=== PATIENT | female | born 1965 | race Caucasian/White ===

== ENCOUNTER 2023-02-21 08:21 | Outpatient (OUT) | payer BC, SELFPAY ==
--- NOTE | 2023-02-21 08:36 | XR_ITS ---
The [address] [address] Patient Name: MELLY ORR MRN: [id number] date: 1965 Sex: F Assigned Patient Location: LAB Current Patient Location: LAB Accession/Order Number: [id number] Exam Date: 02/21/2023 08:45 Report Date: 02/21/2023 09:27 At the request of: SANGEETA BOOGIE Procedure: XR cervical spine 2-3V EXAMINATION: XR cervical spine 2-3V HISTORY: Cervical Pain M54.2 COMPARISON: No relevant comparison available. FINDINGS: BONES: Normal alignment with no acute fracture or spondylolisthesis. Moderate to severe degenerative spondylosis. [id number] facet osteoarthropathy DISC SPACES: Moderate to severe multilevel disc space narrowing most significant at C4-C7 PARASPINOUS: Negative. No paraspinous abnormality is seen. OTHER: Negative. XR/XR cervical spine 2-3V IMPRESSION: Moderate to severe degenerative changes Electronically authenticated by: ARCHANA BIANCHI Date: 02/21/2023 09:27
[2023-02-21 09:20] LABS: Basophils Percent Auto 0.5 % (0.2-2.0); Eosinophils Absolute Auto 0.3 10^3/uL (0.0-0.7); Eosinophils Percent Auto 3.2 % (0.9-7.0); Hematocrit 47.3 % (36.0-48.0); Immature Granulocytes Abs Auto 0.02 10^3/uL (0.00-0.03); Immature Granulocytes Pct Auto 0.3 % (0.0-0.5); Lymphocytes Absolute Auto 1.9 10^3/uL (1.2-3.8); Lymphocytes Percent Auto 24.9 % (20.5-60.0); Mean Corpuscular HGB Conc 31.7 g/dL (29.9-35.2); Mean Corpuscular Hemoglobin 29.8 pg (26.7-34.0); Mean Corpuscular Volume 93.8 fL (81.0-99.0); Mean Platelet Volume 9.8 fL (9.5-13.5); Monocytes Absolute Auto 0.6 10^3/uL (0.3-0.8); Monocytes Percent Auto 7.1 % (1.7-12.0); Neutrophils Absolute Auto 4.9 10^3/uL (1.4-6.5); Platelet Count 355 10^3/uL (150-450); Red Blood Count 5.04 10^6/uL (4.20-5.40); Red Cell Distribution Width 12.9 % (11.0-15.0); White Blood Count 7.7 10^3/uL (4.0-11.0)
[2023-02-21 09:21] LABS: Bilirubin Urine NEGATIVE (NEGATIVE); Blood Urine NEGATIVE (NEGATIVE); Clarity Urine CLEAR (CLEAR); Color Urine DK. YELLOW (YELLOW); Glucose Urine UA 100 mg/dL (NEGATIVE); Ketones Urine 15 mg/dL (NEGATIVE); Leukocyte Esterase Urine NEGATIVE (NEGATIVE); Nitrite Urine NEGATIVE (NEGATIVE); Protein Urine >=300 mg/dL (NEG/TRACE); Specific Gravity Urine >=1.030 (1.005-1.025); pH Urine 5.5 (5.0-9.0)
[2023-02-21 09:32] LABS: WBC Urine NONE SEEN #/HPF (NONE SEEN)
[2023-02-21 09:33] LABS: Bacteria Urine SMALL #/HPF (NONE SEEN); Cast Seen? NONE SEEN #/LPF (NONE SEEN); Crystals Seen? None Seen #/HPF (None Seen); Mucus Urine NONE SEEN (NONE SEEN); RBC Urine 0-2 #/HPF (0-2); Squamous Epithelial Cell Urine MODERATE #/LPF (NONE/RARE)
[2023-02-21 12:08] LABS: Free T4 0.93 ng/dL (0.76-1.46)
[2023-02-21 12:59] LABS: Estimated Average Glucose 255 mg/dL; Glycohemoglobin A1C 10.5 % (4.5-6.2)
[2023-02-21 14:55] LABS: Alanine Aminotransferase 14 U/L (14-59); Albumin Globulin Ratio 1.1; Albumin Level 3.6 g/dL (3.4-5.0); Alkaline Phosphatase 105 U/L (46-116); Anion Gap 12.3; Aspartate Amino Transferase 8 U/L (15-37); BUN Creatinine Ratio 11.8; Bilirubin Total 0.3 mg/dL (0.2-1.0); Carbon Dioxide 29.7 mmol/L (21.0-32.0); Chloride 102 mmol/L (98-107); Estimated GFR (African America >60 (>=60); Estimated GFR (Non-African Ame >60 (>=60); Globulin 3.4 g/dL; Glucose 240 mg/dL (74-106); Sodium 140 mmol/L (136-145)
[2023-02-21 14:56] LABS: Chol HDL Ratio 5.2; Cholesterol 280 mg/dL (<=200); HDL Cholesterol 54 mg/dL (40-60); Thyroid Stimulating Hormone 0.978 uIU/mL (0.358-3.740); Triglycerides 177 mg/dL (<=150); VLDL CHOLESTEROL 35.4 mg/dL
== END 2023-02-21 08:22 | disposition home or self-care (01) ==
LOC: LAB 08:25
PROVIDERS: PCP Nurse Practitioner; Visit Provider Nurse Practitioner
DX: Z78.9 Other specified health status (principal); M54.2 Cervicalgia; M47.812 Spondylosis without myelopathy or radiculopathy, cervical region
CPT/HCPCS: 36415; 72040; 80053; 80061; 81001; 83036; 84439; 84443; 85025

== ENCOUNTER 2023-06-15 15:07 | Outpatient (OUT) | payer BC, SELFPAY ==
--- NOTE | 2023-06-15 15:25 | MM_ITS ---
Patient Name: MELLY ORR MR#: [id number] : 1965 Exam Date: 06/15/2023 Ordering Doctor: TYLER Marte CNP RADIOLOGY REPORT PROCEDURE: MM TOMOSYNTHESIS SCREENING BI COMPARISON: None. INDICATIONS: screening Calculator Name NCI Breast Cancer Risk Assessment Tool 5 Year Breast Cancer Risk 1.20% Lifetime Breast Cancer Risk 7.90% Personal Breast Cancer No Personal Ovarian Cancer No Treatments None Family Cancers Father with lung cancer at age 69. LOCATION: The [facility] BREAST COMPOSITION: Scattered areas fibroglandular density. FINDINGS: DIAGNOSTIC CATEGORY 1--NEGATIVE. RIGHT BREAST: No significant suspicious finding. LEFT BREAST: No significant suspicious finding. RECOMMENDATIONS: ROUTINE MAMMOGRAM AND CLINICAL EVALUATION IN 12 MONTHS. PLEASE NOTE: A NORMAL MAMMOGRAM DOES NOT EXCLUDE THE POSSIBILITY OF BREAST CANCER. A CLINICALLY SUSPICIOUS PALPABLE LUMP SHOULD BE BIOPSIED. Dictated by: Jarvis Rubio MD on 06/16/2023 at 08:10 Approved by: Jarvis Rubio MD on 06/16/2023 at 08:12
[2023-06-15 15:42] LABS: Estimated Average Glucose 206 mg/dL; Glycohemoglobin A1C 8.8 % (4.5-6.2)
[2023-06-15 16:10] LABS: Alanine Aminotransferase 16 U/L (14-59); Aspartate Amino Transferase 12 U/L (15-37); Chol HDL Ratio 2.9; Cholesterol 191 mg/dL (<=200); HDL Cholesterol 66 mg/dL (40-60); Triglycerides 193 mg/dL (<=150); VLDL CHOLESTEROL 38.6 mg/dL
== END 2023-06-15 15:08 | disposition home or self-care (01) ==
LOC: LAB 15:09
PROVIDERS: PCP Nurse Practitioner; Visit Provider Nurse Practitioner
DX: Z12.31 Encounter for screening mammogram for malignant neoplasm of breast (principal); Z80.1 Family history of malignant neoplasm of trachea, bronchus and lung; E08.65 Diabetes mellitus due to underlying condition with hyperglycemia; E78.2 Mixed hyperlipidemia
CPT/HCPCS: 36415; 77063; 77067; 80061; 82043; 82570; 83036; 84450; 84460

== ENCOUNTER 2023-06-26 21:17 | Outpatient (REF) | payer BC, SELFPAY ==
--- OUTSIDE RECORDS SUMMARY | 2023-06-26 21:21 | XMS_ITS | CCD ---
Author Name Unknown Address [address] [place] [address] Organization [facility] Care Team Providers Care Motor Operator Name Role Phone MEIR COCHRAN Admitting Unavailable MEIR COCHRAN Attending Unavailable MISC, DOCTOR Primary Care Unavailable MEIR COCHRAN Consulting Unavailable Adan Sol Unavailable Akosua Arroyo Unavailable Steffi Ayala Unavailable ROXIE MARTE Attending Unavailable ROXIE MARTE Attending Unavailable ROCÍO MAYEN Attending Unavailable AICSHARRON, ROXIE Referring Unavailable AKOSUA SKINNER Attending Unavailable AICHHOLZ, ROXIE Referring Unavailable AVEL ECJA Attending Unavailable AICHHOLZ, ROXIE Referring Unavailable MONICA BOUDREAUX Attending Unavailable AICHHOLZ, ROXIE Referring Unavailable ROCÍO MAYEN Attending Unavailable AICHEDWIN, ROXIE Referring Unavailable AKOSUA SKINNER Attending Unavailable AICHSILVIAZ, ROXIE Referring Unavailable Nikunj Camejo MD Primary Care Provider [phone] Estuardo COMMERCIAL RELATIONSHIP MANAGER, Roxie Unavailable Nikunj Camejo MD Unavailable Medications Current Medications Medication Drug Class(es) Dates Sig (Normalized) Sig (Original) atorvastatin 10 mg oral tablet (3 sources) HMG-CoA Reductase Inhibitor Start: 03-02-2023 End: 06-23-2023 take 1 tablet by mouth at bedtime atorvastatin (Lipitor) 10 MG tablet Indications: Hyperlipidemia, unspecified (CMS/HCC) Take 1 tablet (10 mg) by mouth at bedtime 30 tablet 1 05/24/2023 06/23/2023 Active Blood Glucose Monitoring Suppl (ONE TOUCH ULTRA 2) w/Device kit (1 source) Start: 05-29-2023 Blood Glucose Monitoring Suppl (ONE TOUCH ULTRA 2) w/Device kit Indications: Type 2 diabetes mellitus without complications (CMS/HCC) 1 kit in the morning. 1 kit 0 05/29/2023 Active Cinnamon Preparation (2 sources) Non-Standardized Food Allergenic Extract take 1000 mg by mouth in the morning CINNAMON PO Take 1,000 mg by mouth in the morning and 1,000 mg before bedtime. 0 Active clindamycin 300 mg oral capsule (3 sources) Lincosamide Antibacterial Start: 09-11-2021 take 1 capsule by mouth every eight hours Clindamycin HCl 300 MG 1 capsule Orally every 8 hrs for 5 day(s) August, Active dapagliflozin 5 mg oral tablet (2 sources) Sodium-Glucose Cotransporter 2 Inhibitor Start: 03-28-2023 take 5 mg by mouth in the morning Farxiga 5 MG Take 5 mg by mouth in the morning. 0 03/28/2023 Active isopropyl alcohol 0.7 ml/ml medicated pad (2 sources) Start: 03-02-2023 Alcohol Swabs (B-D SINGLE USE SWABS REGULAR) pads USE DIRECTED DAILY 0 03/02/2023 Active metFORMIN hydrochloride 500 mg oral tablet (5 sources) Biguanide Start: 03-13-2023 End: 06-24-2023 take 1 tablet by mouth in the morning metFORMIN (Glucophage) 500 MG tablet Indications: Type 2 Diabetes Mellitus Take 1 tablet (500 mg) by mouth in the morning and 1 tablet (500 mg) in the evening. Take with meals. 60 tablet 2 05/25/2023 06/24/2023 Active take 1 tablet by miquel th every twenty-four hours metFORMIN HCl ER 500 MG 1 tablet with evening meal Orally Once a day Not-Taking Multiple Vitamins-Minerals (CENTRUM SILVER PO) (2 sources) Multiple Vitamins-Minerals (CENTRUM SILVER PO) Take by mouth Daily. 0 Active Multiple Vitamins-Minerals (EYE VITAMINS PO) (2 sources) take 2 tablets by mouth once daily Multiple Vitamins-Minerals (EYE VITAMINS PO) Take 2 tablets by mouth 1 (one) time each day. 0 Active terbinafine hydrochloride 10 mg/ml topical cream (2 sources) Allylamine Antifungal terbinafine (LamISIL ) 1 % cream Apply 1 application topically in the morning and 1 application before bedtime. Apply to affected area of left foot for up to 4 weeks. Starting 02/09/2023.. 0 Active Completed/Discontinued Medications Medication Drug Class(es) Dates Sig (Normalized) Sig (Original) amoxicillin 875 mg / clavulanate 125 mg oral tablet (3 sources) Penicillin-class Antibacterial Start: 08-30-2018 take 1 tablet by mouth every twelve hours Amoxicillin-Pot Clavulanate 875-125 MG 1 tablet Orally every 12 hrs for 7 days August, Not-Taking dexamethasone 1 mg/ml / neomycin 3.5 mg/ml / polymyxin b 23112 unt/ml ophthalmic suspension (3 sources) Aminoglycoside Antibacterial, Polymyxin-class Antibacterial, Corticosteroid Start: 08-30-2018 take 2 drop(s) into the eye(s) four times daily Maxitrol 3.5-62473-6.1 2 drops into affected eye Ophthalmic Four times a day for 5 days August, Not-Taking glyBURIDE (3 sources) Sulfonylurea glyBURIDE Not-Taking ipratropium bromide 0.042 mg/actuat metered dose nasal spray (3 sources) Anticholinergic Start: 08-30-2018 take 2 spray(s) nasal route three times daily Ipratropium [place] 0.06 % 2 sprays in each nostril Nasally Three times a day for 4 day(s) August, Not-Taking Methotrexate (3 sources) Folate Analog Metabolic Inhibitor Start: 01-22-2016 Methotrexate Sodium 5 mg Jan, 5 mL Triamcinolone (3 sources) Corticosteroid Start: 01-22-2016 KENALOG - 10 mg Jan, 10 mL Problems Active Problems Problem Classification Problem Date Documented Da te Episodic/Chronic Diabetes mellitus with complications (2 sources) Secondary diabetes mellitus; Translations: [Diabetes mellitus due to underlying condition with hyperglycemia] Onset: 03-13-2023 03-13-2023 Chronic Diabetes mellitus without complication (2 sources) Type 2 diabetes mellitus without complications; Translations: [Type 2 diabetes mellitus without complication] Onset: 09-14-2018 05-29-2023 Chronic Disorders of lipid metabolism (3 sources) Hyperlipidemia; Translations: [Hyperlipidemia, unspecified] Onset: 05-15-2023 05-24-2023 Chronic Other aftercare (1 source) [facility] (current) use of oral hypoglycemic drugs; Translations: [RETIREMENT USE ORAL HYPOGLYCEMIC DX] Onset: 09-14-2018 Other connective tissue disease (2 sources) Spasm of cervical paraspinous muscle; Translations: [Other muscle spasm] Onset: 03-28-2023 03-28-2023 Episodic Other ear and sense organ disorders (3 sources) Otalgia, left ear; Translations: [OTALGIA LEFT EAR] Onset: 09-12-2018 Episodic Other screening for suspected conditions (not mental disorders or infectious disease) (2 sources) Patient encounter status; Translations: [Encounter for screening mammogram for malignant neoplasm of breast] Onset: 05-15-2023 05-15-2023 Episodic Otitis media and related conditions (1 source) Otitis media, unspecified, left ear; Translations: [OTITIS MEDIA UNSPECIFIED LEFT EAR] Onset: 09-14-2018 Episodic Residual codes; unclassified (2 sources) Tobacco user; Translations: [Tobacco use] Onset: 05-15-2023 05-15-2023 Episodic Residual codes; unclassified (2 sources) Body mass index 20-24 - normal; Translations: [Body mass index (BMI) 24.0-24.9, adult] Onset: 05-15-2023 05-15-2023 Episodic Spondylosis; intervertebral disc disorders; other back problems (2 sources) Pain in cervical spine; Translations: [Cervical disc disorder, unspecified, unspecified cervical region] Onset: 03-13-2023 03-13-2023 Chronic Past or Other Problems Problem Classification Problem Date Documented Da te Episodic/Chronic Other aftercare (2 sources) Encounter for other specified aftercare Onset: 09-13-2021 Resolved: 09-15-2021 Episodic Skin and subcutaneous tissue infections (1 source) Cutaneous abscess of left axilla Onset: 09-11-2021 Resolved: 09-11-2021 Episodic Vital Signs Date Time Vital Sign Value Performing Clinician Facility 09-15-2021 17:55-0400 Body height 152.4 cm Akosua Arroyo Other [facility] Other 09-15-2021 17:55-0400 Body mass index (BMI) [Ratio] 23.24 kg/m2 Akosua Arroyo Other [facility] Other 09-15-2021 17:55-0400 Body temperature 98 [degF] Akosua Arroyo Other [facility] Other 09-15-2021 17:55-0400 Body weight 53.98 kg Akosua Arroyo Other [facility] Other 09-15-2021 17:55-0400 Diastolic blood pressure 78 mm[Hg] Akosua Arroyo Other [facility] Other 09-15-2021 17:55-0400 Respiratory rate 18 /min Akosua Arroyo Other [facility] Other 09-15-2021 17:55-0400 SaO2% (BldA) [Mass fraction] 97 % Akosua Arroyo Other [facility] Other 09-15-2021 17:55-0400 Systolic blood pressure 114 mm[Hg] Akosua Arroyo Other [facility] Other 09-13-2021 10:35-0400 Body height 152.4 cm Steffi Valdiviaault Other [facility] Other 09-13-2021 10:35-0400 Body mass index (BMI) [Ratio] 24.8 kg/m2 Steffi Lucy Other [facility] Other 09-13-2021 10:35-0400 Body temperature 97 [degF] Steffi Lucy Other [facility] Other 09-13-2021 10:35-0400 Body weight 57.61 kg Steffi Lucy Other [facility] Other 09-13-2021 10:35-0400 Respiratory rate 18 /min Steffi Ayala Other [facility] Other 09-13-2021 10:35-0400 SaO2% (BldA) [Mass fraction] 97 % Steffi Ayala Other [facility] Other 09-11-2021 10:30-0400 Body height 152.4 cm Adan Sol Other [facility] Other 09-11-2021 10:30-0400 Body mass index (BMI) [Ratio] 24.8 kg/m2 Adan Sol Other [facility] Other 09-11-2021 10:30-0400 Body temperature 96.9 [degF] Adan Sol Other [facility] Other 09-11-2021 10:30-0400 Body weight 57.61 kg Adan Sol Other [facility] Other 09-11-2021 10:30-0400 Respiratory rate 20 /min Adan Sol Other [facility] Other 09-11-2021 10:30-0400 SaO2% (BldA) [Mass fraction] 99 % Adan Sol Other [facility] Other Encounters Encounter Date Encounter Type Care Provider Facility Start: 05-29-2023 Refill Roxie Marte COMMERCIAL RELATIONSHIP MANAGER Work Phone: [facility] Comment on above: Type 2 diabetes felicia itus without complications ([facility]) Start: 05-24-2023 Refill Roxie Marte COMMERCIAL RELATIONSHIP MANAGER Work Phone: [facility] Comment on above: Hyperlipidemia, unsp ecified (CMS/HCC) Start: 05-15-2023 End: 05-15-2023 ambulatory ROXIE SCHWARTZSILVIAZ Not Available Start: 04-07-2023 End: 04-08-2023 ambulatory AKOSUA Dutch SKINNER Not Available Start: 04-03-2023 End: 04-04-2023 ambulatory ROCÍO MAYEN Not Available Start: 03-30-2023 End: 03-30-2023 ambulatory MONICA BOUDREAUX Not Available Start: 03-29-2023 End: 03-29-2023 ambulatory AVEL CEJA Not Available Start: 03-24-2023 ambulatory AKOSUA SKINNER Not Avai lable Start: 03-21-2023 End: 03-21-2023 ambulatory ROCÍO MAYEN Not Available Start: 03-13-2023 End: 03-13-2023 ambulatory ROXIE SCHWARTZSILVIAZ Not Available Start: 09-15-2021 End: 09-15-2021 ambulatory Akosua Arroyo Other [facility] Other Start: 09-15-2021 Office outpatient vi sit 15 minutes Akosua Arroyo [facility] Start: 09-13-2021 End: 09-13-2021 ambulatory Steffi Lucy Other [facility] Other Start: 09-13-2021 Nursing evaluation o f patient and report Steffi Ayala [facility] Start: 09-11-2021 End: 09-11-2021 ambulatory Adan Sol Other [facility] Other Start: 09-11-2021 Office outpatient vi sit 15 minutes Adan [place] [facility] Start: 09-12-2018 End: 09-12-2018 Patient encounter procedure MEIR COCHRAN Facility: Plan of Treatment Date Care Activity Detail Author Start: 10-15-2023 Influenza vaccination Influenza Vacc ine (#1) [facility] Comment on above: Postponed from 09/01 /2023 (Patient Refused) Start: 06-26-2023 End: 06-26-2023 Patient encounter procedure 06/26/2023 5:00 PM EDT Office Visit [facility] [address] [place] [address] Roxie Marte, BARRY [address] [place] [address] [facility] Start: 2006 Screening for malign ant neoplasm of breast Mammogram [facility] Start: 1996 Screening for malign ant neoplasm of cervix [facility] Start: 12-17-1987 Screening for malign ant neoplasm of cervix Pap Smear [facility] Start: 1985 Urine screening for protein Diabetes: Urine Protein Screening [facility] Start: 1976 Glaucoma screening Diabetes: R etinopathy Screening [facility] Start: 1965 Hemoglobin A1c measurement Diabetes: Hemoglobin A1C [facility] Start: 1965 Screening for malign ant neoplasm of colon [facility] Payers Date Payer Category Payer Unknown [id number] 2019 Unknown BCBS BCBS [id number] 2019-Present [phone] [address] [place] [address] [id number] 1965 Unknown [id number] 1965 Unknown [id number] 1965 Unknown [id number] 1965 Unknown [id number] 1965 Unknown [id number] 1965 Unknown [id number] 1965 Unknown [id number] 1965 Unknown [id number] 1965 Unknown [id number] 1958 Unknown [id number] Social History Date Type Detail Facility Unknown if ever smoked [facility] Other Start: 05-15-2023 Sex Assigned At N [employer] Other Start: 03-13-2023 Tobacco smoking stat [facility] Smokes tobacco daily [facility] History of tobacco use [facility]igarette Smoker [facility] Start: 03-13-2023 End: 05-15-2023 Cigarettes smoked current (pack per day) - Reported 1 [facility] Start: 03-13-2023 Tobacco use and exposure Smokeless tobacco non-user [facility] Start: 05-15-2023 Alcohol intake Defer [facility] Start: 1965 Sex Assigned At Not on file N [facility] Medical Equipment Procedure Code Equipment Code Equipment Origin al Text Equipment Identifier Dates Once a day [id number] Start: 05-29-2023 End: 05-28-2024 1 Lancet in the morning. [id number] Start: 05-29-2023 Evaluation note 09-15-2021 Note Date & Type Note Facility 09-15-2021 Evaluation note Encounter Date Diagnosis Assessment Notes Sep, Visit for wound check (ICD-10 - Z51.89) Keep the area clean and dry. Keep the area covered with a Band-Aid. No swimming until the area is completely healed. Follow-up with the family physician next week for recheck. Go to the ER for worsening symptoms or concerns. Sep, Other Incision and drainage of a skin abscess material was printed [facility] Other Evaluation note 09-13-2021 Note Date & Type Note Facility 09-13-2021 Evaluation note Encounter Date Diagnosis Assessment Notes August, Encounter for wound re-check (ICD-10 - Z51.89) RTO on Monday and dressing changed today in office. [facility] Other Evaluation note 09-11-2021 Note Date & Type Note Facility 09-11-2021 Evaluation note Encounter Date Diagnosis Assessment Notes August, Cutaneous abscess of left axilla (ICD-10 - L02.412) Apply warm compresses to affected area for 15 minutes 4 times a day for 5 days. Take antibiotics as prescribed. I&D was performed on the abscess. See procedure note for details. Will order clindamycin as I am concerned about bactrim given the metformin and glyburide interaction risk of hypoglycemia. Given that she was prescribed doxycycline 1 month ago, I am concerned about the efficacy of doxy. Pt advised about the risk of C diff with clindamycin. She understands and agrees with the plan. [facility] Other Evaluation note Note Date & Type Note Facility Evaluation note Diagnosis Hyperlipidemia, unspecified (CMS/HCC) documented in this encounter [facility] Evaluation note Note Date & Type Note Facility Evaluation note Diagnosis Type 2 diabetes mellitus without complications (CMS/HCC) documented in this encounter [facility] History general Narrative - Reported Note Date & Type Note Facility History general Narrative - Reported Type Medical History diabetic Medical History hypercholesterolemia Surgical History right leg surgery Surgical History gallblatter Surgical History c section Surgical History tonsils Hospitalization History see above [facility] Other Summary Purpose Family History No Family History Records FoundNo Family History Records Found Advance Directives No Advanced Directives Records FoundNo Advanced Directives Records Found Additional Source Comments INFORMATION SOURCE (unrecogn ized section and content) DATE CREATED AUTHOR 11/26/2018 [facility] DATE CREATED AUTHOR AUTHOR'S ORGANIZ ATION 05/16/2023 [facility] EPIC REASON FOR VISIT (unrecogniz ed section and content) Reason Comments Med Refill Care Teams (unrecognized sec tion and content) Motor Operator Relationship Specialty Start Date End Date Nikunj Camejo MD PCP - General Family Medicine 02/17/23 Nikunj Camejo MD [address] [place] [phone] [facility] 04/[facility]/23 Roxie Marte NP [address] [place] [phone] Nurse Practitioner Family Medicine 02/17/23 Motor Operator Relationship Specialty Start Date End Date Nikunj Camejo MD PCP - General Family Medicine 02/17/23 Nikunj Camejo MD [address] [place] [phone] PCP [facility] 04/17/23 Roxie Marte NP [address] [place] [phone] Nurse Practitioner Family Medicine 02/17/23 FOR RECORDS PERTAINING TO PATIENTS WHO ARE OR HAVE BEEN ENROLLED IN A CHEMICAL DEPENDENCY/SUBSTANCEABUSE PROGRAM, SOME INFORMATION MAY BE OMITTED. This clinical summary was aggregated from multiple sources. Caution should be exercised in using it in the provision of clinical care. This summary normalizes information from multiple sources, and as a consequence, information in this document may materially change the coding, format and clinical context of patient data. In addition, data may be omitted in some cases. CLINICAL DECISIONS SHOULD BE BASED ON THE PRIMARY CLINICAL RECORDS. [employer] provides no warranty or guarantee of the accuracy or completeness of information in this document.
[2023-06-29 13:11] LABS: Age Gdln ACOG Testing Note (.); HPV Aptima Negative (Negative); IGP, Aptima HPV, rfx 16/18,45 Note (.)
== END 2023-06-26 21:18 | disposition home or self-care (01) ==
LOC: LAB 21:17
PROVIDERS: PCP Nurse Practitioner; Visit Provider Nurse Practitioner
DX: Z01.419 Encounter for gynecological examination (general) (routine) without abnormal findings (principal)
CPT/HCPCS: 87624; G0145

== ENCOUNTER 2023-11-03 14:28 | Outpatient (OUT) | payer BC, SELFPAY ==
--- OUTSIDE RECORDS SUMMARY | 2023-11-03 14:35 | XMS_ITS | CCD ---
Author Organization [facility] Care Team Providers Care Director Of Early Childhood Name Role Phone MEIR COCHRAN Admitting Unavailable MEIR COCHRAN Attending Unavailable MISC, DOCTOR Primary Care Unavailable MEIR COCHRAN Consulting Unavailable Adan Sol Unavailable [facility] Unavailable Steffi Ayala Unavailable Nikunj Camejo MD Primary Care Provider Estuardo LOCOMOTIVE CRANE OPERATOR HELPER, Roxie Unavailable Nikunj Camejo MD Unavailable AICHSILVIAZ, ROXIE Attending Unavailable AICHHOLZ, ROXIE Attending Unavailable AICHHOLZ, ROXIE Attending Unavailable AICHHOLZ, ROXIE Referring Unavailable AICHHOLZ, ROXIE Attending Unavailable AICHHOLZ, ROXIE Attending Unavailable ROCÍO MAYEN Attending Unavailable AICHHOLZ, ROXIE Referring Unavailable AKOSUA SKINNER Attending Unavailable AICHHOLZ, ROXIE Referring Unavailable AVEL CEJA Attending Unavailable AICHHOLZ, ROXIE Referring Unavailable MONICA BOUDREAUX Attending Unavailable AICHHOLZ, ROXIE Referring Unavailable ROCÍO MAYEN Attending Unavailable AICHHOLZ, ROXIE Referring Unavailable AKOSUA SKINNER Attending Unavailable AICHHOLZ, ROXIE Referring Unavailable Medications Current Medications Medication Drug Class(es) [...] / neomycin 3.5 mg/ml / polymyxin b 00839 unt/ml ophthalmic suspension (3 sources) Aminoglycoside Antibacterial, Polymyxin-class Antibacterial, Corticosteroid Start: 08-30-2018 take 2 drop(s) into the eye(s) four times daily Maxitrol 3.5-67012-1.1 2 drops into affected eye Ophthalmic Four times a day for 5 days August, Not-Taking glyBURIDE (3 sources) Sulfonylurea glyBURIDE Not-Taking ipratropium bromide 0.042 mg/actuat metered dose nasal spray (3 sources) Anticholinergic Start: 08-30-2018 take 2 spray(s) nasal route three times daily Ipratropium [place] 0.06 % 2 sprays in each nostril [...] (current) use of oral hypoglycemic drugs; Translations: [RESIDENTIAL USE ORAL HYPOGLYCEMIC DX] Onset: 09-14-2018 Other [...] left axilla Onset: 09-11-2021 Resolved: 09-11-2021 Episodic Results Test Name Value Interpretation Reference Range Facil ity MR CERVICAL SPINE WO CONTRAS Ton 07-28-2023 MR CERVICAL SPINE WO CONTRAST EXAM: MR CERVICAL SPINE WO CONTRAST History: Cervical degenerative disc disease. Lower neck and shoulder pain. Technique: Multiplanar multisequence MRI of the cervical spine was performed without contrast. Comparison: None available Findings: Craniocervical junction is within normal limits. No cervical cord signal abnormality is identified. No aggressive bone marrow signal abnormality. Cervical spine alignment is within normal limits. Disc desiccation throughout the cervical spine. Moderate intervertebral height loss at C4-5, C5-6, and C6-7, levels where there are degenerative endplate changes with spurring. C2-C3: Small disc bulge with tiny superimposed central disc protrusion. Mild facet arthropathy. No neural foraminal or spinal canal stenosis. C3-C4: Small disc bulge. Mild right uncovertebral hypertrophy. Mild facet arthropathy. Mild bilateral neuroforaminal stenosis. Mild spinal canal stenosis. C4-C5: Moderate disc bulge. Advanced uncovertebral hypertrophy. Moderate facet arthropathy. Severe spinal canal stenosis. Severe bilateral neural foraminal stenosis. C5-C6: Moderate disc bulge with superimposed right central disc protrusion. Moderate left and advanced right uncovertebral hypertrophy. Mild facet arthropathy. Severe spinal canal stenosis. Severe bilateral neural foraminal stenosis. C6-C7: Small disc bulge with superimposed right central disc protrusion. Mild left and advanced right uncovertebral hypertrophy. Mild facet arthropathy. Severe spinal canal stenosis. Moderate to severe bilateral neural foraminal stenosis. C7-T1: Small disc bulge. No neural foraminal or spinal canal stenosis. Visualized paravertebral soft tissues are grossly unremarkable. IMPRESSION: Degenerative changes of the cervical spine as detailed. ELECTRONICALLY SIGNED BY: Lior Cochran, DO Normal Not Available Vital Signs Date Time Vital Sign Value Performing Clinician Facility 09-15-2021 17:55-0400 Body height 152.4 cm [facility] Other [facility] 09-15-2021 17:55-0400 Body mass index (BMI) [Ratio] 23.24 kg/m2 [facility] Other [facility] 09-15-2021 17:55-0400 Body temperature 98 [degF] [facility] Waynemond Other [facility] Other 09-15-2021 17:55-0400 Body weight 53.98 kg [facility] Other [facility] Other 09-15-2021 17:55-0400 Diastolic blood pressure 78 mm[Hg] [facility] Other [facility] Other 09-15-2021 17:55-0400 Respiratory rate 18 /min [facility] Other [facility] 09-15-2021 17:55-0400 SaO2% (BldA) [Mass fraction] 97 % [facility] Other [facility] Other 09-15-2021 17:55-0400 Systolic blood pressure 114 mm[Hg] [facility] Other [facility] Other 09-13-2021 10:35-0400 Body height 152.4 cm Steffi Valdiviaault Other [facility] Other 09-13-2021 10:35-0400 Body mass index (BMI) [Ratio] 24.8 kg/m2 Steffi Lucy Other [facility] Other 09-13-2021 10:35-0400 Body temperature 97 [degF] Steffi Lucy Other [facility] Other 09-13-2021 10:35-0400 Body weight 57.61 kg Steffi Valdiviaault Other [facility] Other 09-13-2021 10:35-0400 Respiratory rate 18 /min Steffi Lucy Other [facility] Other 09-13-2021 10:35-0400 SaO2% (BldA) [Mass fraction] 97 % Steffi Lucy Other [facility] Other 09-11-2021 10:30-0400 Body height 152.4 cm Adan Sol Other [facility] Other 09-11-2021 10:30-0400 Body mass index (BMI) [Ratio] 24.8 kg/m2 Adan Sol Other [facility] Other 09-11-2021 10:30-0400 Body temperature 96.9 [degF] Adan Sol Other [facility] Other 09-11-2021 10:30-0400 Body weight 57.61 kg Adan Sol Other [facility] Other 09-11-2021 10:30-0400 Respiratory rate 20 /min Adan Sol Other [facility] Other 09-11-2021 10:30-0400 SaO2% (BldA) [Mass fraction] 99 % Adan Sol Other [facility] Other Encounters Encounter Date Encounter Type Care Provider Facility Start: 10-03-2023 End: 10-03-2023 ambulatory ROXIE AICHHOLZ Not Available Start: 08-07-2023 End: 08-07-2023 ambulatory ROXIE AICHHOLZ Not Available Start: 07-28-2023 End: 07-28-2023 ambulatory ROXIE AICHHOLZ Not Available Start: 06-26-2023 End: 06-26-2023 ambulatory ROXIE AICHHOLZ Not Available Start: 05-29-2023 Refill Roxie Aichholz LOCOMOTIVE CRANE OPERATOR HELPER Work Phone: [facility] Comment on above: Type 2 diabetes felicia itus without complications ([facility]) Start: 05-24-2023 Refill Roxie Aichholz LOCOMOTIVE CRANE OPERATOR HELPER Work Phone: [facility] Comment on above: Hyperlipidemia, unsp ecified (CMS/HCC) Start: 05-15-2023 End: 05-15-2023 ambulatory ROXIE SCHWARTZSILVIAZ Not Available Start: 04-07-2023 End: 04-07-2023 ambulatory AKOSUA SKINNER Not Available Start: 04-03-2023 End: 04-04-2023 ambulatory ROCÍO MAYEN Not Available Start: 03-30-2023 End: 03-30-2023 ambulatory MONICA BOUDREAUX Not Available Start: 03-29-2023 End: 03-29-2023 ambulatory AVEL CEJA Not Available Start: 03-24-2023 ambulatory AKOSUA Dutch SKINNER Not Avai lable Start: 03-21-2023 End: 03-21-2023 ambulatory ROCÍO MAYEN Not Available Start: 03-13-2023 End: 03-13-2023 ambulatory ROXIE SCHWARTZSILVIARoxana Not Available Start: 09-15-2021 End: 09-15-2021 ambulatory [facility] Arroyo Other [facility] Other Start: 09-15-2021 Office outpatient vi sit 15 minutes Akosua Arroyo [facility] Start: 09-13-2021 End: 09-13-2021 ambulatory Steffi Lucy Other [facility] Other Start: 09-13-2021 Nursing evaluation o f patient and report Steffi Ayala [facility] Start: 09-11-2021 End: 09-11-2021 ambulatory Adan Shreve Other [facility] Other Start: 09-11-2021 Office outpatient vi sit 15 minutes Adan Shreve [facility] Start: 09-12-2018 End: 09-12-2018 Patient encounter procedure MEIR COCHRAN Facility: Plan of Treatment Date Care Activity Detail Author Start: 10-15-2023 Influenza vaccination Influenza Vacc ine (#1) [facility] Comment on above: Postponed from 12/16 (Patient Refused) Start: 06-26-2023 End: 06-26-2023 Patient encounter procedure 06/26/2023 5:00 PM EDT Office Visit [facility] [address] [place] [address] Roxie Marte NP [address] [place] [address] [facility] Start: 2006 Screening for malign ant neoplasm of breast Mammogram [facility] Start: 1996 Screening for malign ant neoplasm of cervix [facility] Start: 12-17-1987 Screening for malign ant neoplasm of cervix Pap Smear [facility] Start: 1985 Urine screening for protein Diabetes: Urine Protein Screening [facility] Start: 1976 Glaucoma screening Diabetes: R etinopathy Screening [facility] Start: 1966 Hemoglobin A1c measurement Diabetes: Hemoglobin A1C [facility] Start: 1966 Screening for malign ant neoplasm of colon [facility] Payers Date Payer Category Payer Unknown BCBS BCBS xxxxxx [id number] 2019-Present [phone] [address] [place] [address] [id number] 2019 Unknown [id number] 1966 Unknown [id number] 1966 Unknown [id number] [id number] 1966 Unknown [id number] 2.16.840.1.675092.3.579.2.9 1966 Unknown [id number] 2.16.840.1.299384.3.579.2.1259 1966 Unknown [id number] 2.16.840.1.403130.3.579.2.9 1966 Unknown [id number] 2.16.840.1.845890.3.579.2.9 1966 Unknown [id number] 2.16.840.1.207709.3.579.2.1258 1966 Unknown [id number] 2.16.840.1.212104.3.579.2.1258 1966 Unknown [id number] 2.16.840.1.849110.3.579.2.1258 1966 Unknown [id number] 2.16.840.1.296565.3.579.2.1258 1966 Unknown [id number] 2.16.840.1.667739.3.579.2.1258 1966 Unknown [id number] 2.16.840.1.433750.3.579.2.1258 1966 Unknown [id number] [id number] 1959 Unknown [id number] Social History Date Type Detail Facility Unknown if ever smoked [facility] Other Start: 05-15-2023 Sex Assigned At [facility] Other Start: 03-13-2023 Tobacco smoking stat [facility] Smokes tobacco daily [facility] History of tobacco use [facility]igarette [facility]oker [facility] Start: 03-13-2023 End: 05-15-2023 Cigarettes smoked current (pack per day) - Reported 1 [facility] Start: 03-13-2023 Tobacco use and exposure Smokeless tobacco non-user [facility] Start: 05-15-2023 Alcohol intake [facility]er [facility] Start: 1965 Sex Assigned At Not on file [facility] Medical Equipment Procedure Code Equipment Code Equipment Origin al Text Equipment Identifier Dates Once a day [id number] Start: 05-29-2023 End: 05-28-2024 1 Lancet in the morning. [id number] Start: 05-29-2023 Evaluation note 09-15-2021 Note Date [...] of a skin abscess material was printed [facility] Other Evaluation note 09-13-2021 Note Date & Type Note Facility 09-13-2021 Evaluation note Encounter Date Diagnosis Assessment Notes August, Encounter for wound re-check (ICD-10 - Z51.89) RTO on Monday and dressing changed today in office. [facility] Other Evaluation note 09-11-2021 Note Date & [...] She understands and agrees with the plan. [facility] Other Evaluation note Note Date & Type [...] Surgical History tonsils Hospitalization History see above [facility] Other Summary Purpose Family History No Family History Records FoundNo Family History Records Found Advance Directives No Advanced Directives Records FoundNo Advanced Directives Records Found Additional Source Comments INFORMATION SOURCE (unrecogn ized section and content) DATE CREATED AUTHOR 11/26/2018 [facility] DATE CREATED AUTHOR AUTHOR'S ORGANIZ ATION 10/04/2023 [facility] EPIC REASON FOR VISIT (unrecogniz ed section and content) Reason Comments Med Refill Care Teams (unrecognized sec tion and content) Director Of Early Childhood Relationship Specialty Start Date End Date Nikunj Camejo MD PCP - General Family Medicine 02/17/23 Nikunj Camejo MD [address] [place] [phone] PCP - [employer] 04/17/23 Roxie Marte NP [address] [place] [phone] Nurse Practitioner Family Medicine 02/17/23 Director Of Early Childhood Relationship Specialty Start Date End Date Nikunj Camejo MD PCP - General Family Medicine 02/17/23 Nikunj Camejo MD [address] [place] [phone] PCP - [employer] 04/17/23 Roxie Marte NP [address] [place] [phone] Nurse Practitioner Family Medicine 02/17/23 FOR RECORDS [...] BE BASED ON THE PRIMARY CLINICAL RECORDS. [facility] [employer] [facility]. provides no warranty or guarantee of the accuracy or completeness of information in this document.
[2023-11-03 14:56] LABS: Estimated Average Glucose 186 mg/dL; Glycohemoglobin A1C 8.1 % (4.5-6.2)
[2023-11-03 15:24] LABS: Anion Gap 11.8; BUN Creatinine Ratio 21.1; Calcium 9.1 mg/dL (8.5-10.1); Chloride 102 mmol/L (98-107); Estimated GFR (African America >60 (>=60); Estimated GFR (Non-African Ame >60 (>=60); Glucose 146 mg/dL (74-106); Potassium 3.8 mmol/L (3.5-5.1); Sodium 139 mmol/L (136-145)
== END 2023-11-03 14:29 | disposition home or self-care (01) ==
LOC: LAB 14:29
PROVIDERS: PCP Nurse Practitioner; Visit Provider Nurse Practitioner
DX: E08.65 Diabetes mellitus due to underlying condition with hyperglycemia (principal)
CPT/HCPCS: 36415; 80048; 83036

== ENCOUNTER 2024-03-01 10:59 | Outpatient (OUT) | payer BC, SELFPAY ==
[2024-03-01 11:18] LABS: Basophils Absolute Auto 0.1 10^3/uL (0.0-0.1); Basophils Percent Auto 0.7 % (0.2-2.0); Eosinophils Absolute Auto 0.3 10^3/uL (0.0-0.7); Eosinophils Percent Auto 2.3 % (0.9-7.0); Hemoglobin 15.8 g/dL (12.0-16.0); Immature Granulocytes Abs Auto 0.03 10^3/uL (0.00-0.03); Immature Granulocytes Pct Auto 0.3 % (0.0-0.5); Lymphocytes Absolute Auto 3.2 10^3/uL (1.2-3.8); Lymphocytes Percent Auto 29.8 % (20.5-60.0); Mean Corpuscular HGB Conc 32.9 g/dL (29.9-35.2); Mean Corpuscular Hemoglobin 30.9 pg (26.7-34.0); Mean Corpuscular Volume 93.9 fL (81.0-99.0); Mean Platelet Volume 9.6 fL (9.5-13.5); Monocytes Absolute Auto 0.8 10^3/uL (0.3-0.8); Monocytes Percent Auto 7.8 % (1.7-12.0); Neutrophils Absolute Auto 6.3 10^3/uL (1.4-6.5); Neutrophils Percent Auto 59.1 % (43.0-75.0); Platelet Count 373 10^3/uL (150-450); Red Blood Count 5.11 10^6/uL (4.20-5.40); Red Cell Distribution Width 13.7 % (11.0-15.0); White Blood Count 10.7 10^3/uL (4.0-11.0)
--- OUTSIDE RECORDS SUMMARY | 2024-03-01 11:19 | XMS_ITS | CCD ---
Author Organization [facility] Care Team Providers Care Fire Code Inspector Name Role Phone MEIR COCHRAN Admitting Unavailable MEIR COCHRAN Attending Unavailable MISC, DOCTOR Primary Care Unavailable MEIR COCRHAN Consulting Unavailable Adan Sol Unavailable Akosua Arroyo Unavailable Steffi Ayala Unavailable Nikunj Camejo MD Primary Care Provider [phone] [facility] TECHNICIAN, Roxie Unavailable Nikunj Camejo MD Unavailable Aicmarisol, Roxie J Primary Care Provider MD Tee Graham Attending Provider [phone] MD Tee Graham Admit Provider AICHHOLZ, ROXIE Attending Unavailable AICHHOLZ, ROXIE Attending Unavailable AICHHOLZ, ROXIE Referring Unavailable AICHHOLZ, ROXIE Attending Unavailable AICHHOLZ, ROXIE Attending Unavailable AICHHOLZ, ROXIE Attending Unavailable ROCÍO MAYEN Attending Unavailable AICHHOLZ, ROXIE Referring Unavailable AKOSUA SKINNER Attending Unavailable AICHHOLZ, ROXIE Referring Unavailable AICHHOLZ, ROXIE Attending Unavailable AVEL CEJA Attending Unavailable AICHHOLZ, ROXIE Referring Unavailable MONICA BOUDREAUX Attending Unavailable AICHHOLZ, ROXIE Referring Unavailable ROCÍO MAYEN Attending Unavailable AICHHOLZ, ROXIE Referring Unavailable AKOSUA SKINNER Attending Unavailable AICHHOLZ, ROXIE Referring Unavailable Tee Graham Admitting Unavailable Aichholz, Roxie J Primary Care Unavailable Tee Graham Attending Unavailable Aichholz, Roxie J Primary Care Unavailable Tee Graham Attending Unavailable Tee Graham Admitting Unavailable Roxie Marte Primary Care Unavailable Tee Graham Attending Unavailable Tee Graham Admitting Unavailable Medications Current Medications Medication Drug Class(es) Dates Sig (Normalized) Sig (Original) 8 hr acetaminophen 650 mg extended release oral tablet (5 sources) Start: 12-06-2023 Acetaminophen (Tylenol Arthritis Pain) 650 mg tablet extended release Active 1300 MG PO Every 12 hours December 06, 2023 12:00am atorvastatin 10 mg oral tablet (9 sources) HMG-CoA Reductase Inhibitor Start: 11-23-2023 take 10 mg by mouth once daily in the morning Atorvastatin Active 10 MG PO Every morning November 23, 2023 12:00am Start: 11-23-2023 Atorvastatin A ctive MG PO November 23, 2023 12:00am Start: 03-02-2023 End: 06-23-2023 take 1 tablet [...] the morning. 1 kit 0 05/29/2023 Active cinnamon bark 500 mg oral capsule (6 sources) Start: 11-23-2023 take 1000 mg by mouth once daily Cinnamon Bark Active 1000 MG PO Daily November 23, 2023 12:00am Start: 11-23-2023 take 500 mg by mouth once tyler y Cinnamon Bark Active 500 MG PO Daily November 23, 2023 12:00am Cinnamon Preparation (2 sources) Non-Standardized Food Allergenic Extract take 1000 mg by mouth in the morning CINNAMON PO Take 1,000 mg by mouth in the morning and 1,000 mg before bedtime. 0 Active clindamycin 300 mg oral capsule (3 sources) Lincosamide Antibacterial Start: take 1 capsule by mouth every eight hours Clindamycin HCl 300 MG 1 capsule Orally every 8 hrs for 5 day(s) August, Active dapagliflozin 10 mg oral tablet (8 sources) Sodium-Glucose Cotransporter 2 Inhibitor Start: take 1 tablet by mouth once daily in the morning Dapagliflozin Propanediol (Farxiga) 10 mg tablet Active 10 MG PO Every morning November 23, 2023 12:00am Start: 03-28-2023 take 5 mg by mouth i n the morning Farxiga 5 MG Take 5 mg by mouth in the morning. 0 03/28/2023 Active ibuprofen 200 mg oral tablet (5 sources) Nonsteroidal Anti-inflammatory Drug Start: 12-06-2023 take 800 mg by mouth once daily Ibuprofen Active 800 MG PO Daily December 06, 2023 12:00am isopropyl alcohol 0.7 ml/ml medicated pad (2 sources) Start: 03-02-2023 Alcohol Swabs (B-D SINGLE USE SWABS REGULAR) pads USE DIRECTED DAILY 0 03/02/2023 Active lisinopril 2.5 mg oral tablet (6 sources) Angiotensin Converting Enzyme Inhibitor Start: 11-23-2023 take 2.5 mg by mouth once daily in the morning Lisinopril Active 2.5 MG PO Every morning November 23, 2023 12:00am Start: 11-23-2023 Lisinopril Act lavelle MG PO November 23, 2023 12:00am metFORMIN hydrochloride 850 mg oral tablet (11 sources) Biguanide Start: 11-23-2023 take 850 mg by mouth twice daily Metformin Active 850 MG PO Twice daily November 23, 2023 12:00am Start: 11-23-2023 Metformin Acti ve MG PO November 23, 2023 12:00am Start: 03-13-2023 End: 06-24-2023 take 1 tablet [...] 1 (one) time each day. 0 Active Zhnfmxxj-Pch-Csgz-Fa-Vit K-Lut (Centrum Silver Women) 8 mg iron-400 mcg-50 mcg tablet (6 sources) Start: take 1 tablet by mouth once daily Vuyvbruz-Onl-Qqqq-Fa-Vi t K-Lut (Centrum Silver Women) 8 mg iron-400 mcg-50 mcg tablet Active 1 TAB PO Daily November 23, 2023 12:00am terbinafine hydrochloride 10 mg/ml topical cream (2 [...] 12 hrs for 7 days August, Not-Taking cephalexin 500 mg oral capsule (4 sources) Cephalosporin Antibacterial Start: 12-22-2023 End: 01-02-2024 take 500 mg by mouth three times daily Cephalexin Discontinued 500 MG PO Three times daily December 22, 2023 12:00am January 02, 2024 10:48am cyclobenzaprine hydrochloride 10 mg oral tablet (4 sources) Muscle Relaxant Start: 12-22-2023 End: 02-01-2024 take 10 mg by mouth three times daily Cyclobenzaprine Discontinued 10 MG PO Three times daily December 22, 2023 12:00am February 01, 2024 9:47am dexamethasone 1 mg/ml / neomycin 3.5 mg/ml / polymyxin b 58650 unt/ml ophthalmic suspension (3 sources) Aminoglycoside Antibacterial, Polymyxin-class Antibacterial, Corticosteroid Start: 08-30-2018 take 2 drop(s) into the eye(s) four times daily Maxitrol 3.5-38361-3.1 2 drops into affected eye Ophthalmic Four times a day for 5 days August, Not-Taking glyBURIDE (3 sources) Sulfonylurea glyBURIDE Not-Taking ipratropium bromide 0.042 mg/actuat metered dose nasal spray (3 sources) Anticholinergic Start: 08-30-2018 take 2 spray(s) nasal route three times daily Ipratropium [place] 0.06 % 2 sprays in each nostril Nasally Three times a day for 4 day(s) August, Not-Taking Methotrexate (3 sources) Folate Analog Metabolic Inhibitor Start: 01-22-2016 Methotrexate Sodium 5 mg Jan, 5 mL oxyCODONE hydrochloride 5 mg oral tablet (4 sources) Opioid Agonist Start: 12-22-2023 End: 02-01-2024 take 5-10 mg by mouth every six hours Oxycodone Discontinued 5 - 10 MG PO Q6H 40 8 December 22, 2023 February 01, 2024 9:47am Triamcinolone (3 sources) Corticosteroid Start: 01-22-2016 KENALOG [...] 05-15-2023 05-24-2023 Chronic Other aftercare (1 source) [facility] (current) use of oral hypoglycemic drugs; Translations: [SHELTER USE ORAL HYPOGLYCEMIC DX] Onset: 09-14-2018 Other connective tissue disease (2 sources) Spasm of cervical paraspinous muscle; Translations: [Other muscle spasm] Onset: 03-28-2023 03-28-2023 Episodic Other ear and sense organ disorders (3 sources) Otalgia, left ear; Translations: [OTALGIA LEFT EAR] Onset: 09-12-2018 Episodic Other hereditary and degenerative nervous system conditions (1 source) 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; Translations: [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] Onset: 01-31-2024 Chronic Other screening for suspected conditions (not mental [...] unspecified cervical region] Onset: 03-13-2023 03-13-2023 Chronic Spondylosis; intervertebral disc disorders; other back problems (20 sources) Spinal stenosis in cervical region; Translations: [Spinal stenosis, cervical region] Onset: 01-31-2024 11-23-2023 Episodic Past or Other Problems Problem Classification Problem Date Documented Da te Episodic/Chronic Other aftercare (2 sources) Encounter for other specified aftercare Onset: 09-13-2021 Resolved: 09-15-2021 Episodic Skin and subcutaneous tissue infections (1 source) Cutaneous abscess of left axilla Onset: 09-11-2021 Resolved: 09-11-2021 Episodic Results Test Name Value Interpretation Reference Range Facility XR cervical spine 2Von 01-30 XR cervical spine 2V [facility] [place] [address] XRay Report Signed Patient: Kayleigh Hansen MR#: [id number] 73 : 1965 Acct:[id number] Age/Sex: 58 / F ADM Date: 01/31/24 Loc: XD Room: Type: [facility] Attending Dr: Tee Graham MD Copies to: Tee Graham MD Ordering Provider: Tee Graham MD Date of Service: 01/31/24 XR/XR cervical spine 2V: M48.02 - Spinal stenosis, cervical region XR cervical spine 2V 01/31/2024 10:53 AM SIGNS AND SYMPTOMS: Neck stiffness, follow-up cervical laminectomy PROTOCOLS: Frontal and lateral radiographs of the cervical spine COMPARISON: 07/28/2023 FINDINGS: There is straightening of the normal cervical lordosis. There is moderate to severe disc height loss at C4-C5 with moderate disc height loss at C5-C6 and C6-C7. There is evidence of prior hemilaminotomy at C3-C7. The prevertebral soft tissues are within normal limits. There is no fracture or destructive lesion. XR/XR cervical spine 2V IMPRESSION: There is evidence of prior hemilaminotomy at C3-C7. There is straightening of the normal cervical lordosis which may be positional or secondary muscle spasm. Similar disc and endplate degenerative changes are noted, as above. Impression dictated by: Rodney Berry M.D.01/31/2024 1:40 PM Dictation Location: [place] [address] Transcribed By: [facility] 01/31/24 1340 Dictated By: Rodney Berry II, MD 01/31/24 1338 Signed By: 01/31/24 1340 Normal [facility] Capillary blood glucose demarco urement by glucometer (mass/volume)Ordered By: Tee Graham on 12-22-2023 Glucose [Mass/Vol] 146 mg/dL Normal [facility] Comment on above: Random Glucose Refer ence Range is dependent on time and content of last meal. Glucose of more than 200 mg/dL in a nonstressed, ambulatory subject supports the diagnosis of Diabetes Mellitus. Result Comment: [place] Glucose Reference Range is dependent on time and content of last meal. Glucose of more than 200 mg/dL in a nonstressed, ambulatory subject supports the diagnosis of Diabetes Mellitus. PERFORMED BY: [place] [address] PATHOLOGIST POWDERED SUGAR SUPERVISOR JESSIE DELGADO M.D. Performed By: #### B MP, CBC #### [address] Glucose Poct Glucometerson 0 12-21-2023 Glucose [Mass/Vol] 320 mg/dL Normal [facility] Comment on above: Result Comment: [place] om Glucose Reference Range is dependent on time and content of last meal. Glucose of more than 200 mg/dL in a nonstressed, ambulatory subject supports the diagnosis of Diabetes Mellitus. PERFORMED BY: [place] [address] PATHOLOGIST POWDERED SUGAR SUPERVISOR JESSIE DELGADO M.D. Performed By: #### G LULS #### Point of Care testing , Glucose [Mass/Vol] 210 mg/dL Normal [facility] Comment on above: Result Comment: [place] om Glucose Reference Range is dependent on time and content of last meal. Glucose of more than 200 mg/dL in a nonstressed, ambulatory subject supports the diagnosis of Diabetes Mellitus. PERFORMED BY: [place] [address] PATHOLOGIST POWDERED SUGAR SUPERVISOR JESSIE DELGADO M.D. Performed By: #### G LULS #### Point of Care testing , Glucose [Mass/Vol] 193 mg/dL Normal [facility] Comment on above: Result Comment: [place] Glucose Reference Range is dependent on time and content of last meal. Glucose of more than 200 mg/dL in a nonstressed, ambulatory subject supports the diagnosis of Diabetes Mellitus. PERFORMED BY: [place] [address] PATHOLOGIST POWDERED SUGAR SUPERVISOR JESSIE DELGADO M.D. Performed By: #### G LULS #### Point of Care testing , Commemt1 Glu2: Cleaned Meter Normal The [facility] Comment on above: Result Comment: PERF ORMED BY: [place] [address] PATHOLOGIST POWDERED SUGAR SUPERVISOR JESSIE DELGADO M.D. Performed By: #### B MP, CBC #### [address] Glucose [Mass/Vol] 199 mg/dL Normal [facility] Comment on above: Result Comment: [place] om Glucose Reference Range is dependent on time and content of last meal. Glucose of more than 200 mg/dL in a nonstressed, ambulatory subject supports the diagnosis of Diabetes Mellitus. Performed By: #### B MP, CBC #### [address] No Panel InformationOrdered By: Tee Graham on 12-21-2023 Bedside Glucose Comment Glu2: cleaned meter [facility] Glucose Poct Glucometerson 0 12-20-2023 Glucose [Mass/Vol] 283 mg/dL Normal [facility] Comment on above: Result Comment: [place] om Glucose Reference Range is dependent on time and content of last meal. Glucose of more than 200 mg/dL in a nonstressed, ambulatory subject supports the diagnosis of Diabetes Mellitus. PERFORMED BY: [place] [address] PATHOLOGIST POWDERED SUGAR SUPERVISOR JESSIE DELGADO M.D. Performed By: #### G LULS #### Point of Care testing , Glucose [Mass/Vol] 298 mg/dL Normal [facility] Comment on above: Result Comment: [place] om Glucose Reference Range is dependent on time and content of last meal. Glucose of more than 200 mg/dL in a nonstressed, ambulatory subject supports the diagnosis of Diabetes Mellitus. PERFORMED BY: [place] [address] PATHOLOGIST POWDERED SUGAR SUPERVISOR JESSIE DELGADO M.D. Performed By: #### G LULS #### Point of Care testing , Commemt1 Glu2: Cleaned Meter Normal The [facility] Comment on above: Result Comment: PERF ORMED BY: [place] [address] PATHOLOGIST POWDERED SUGAR SUPERVISOR JESSIE DELGADO M.D. Performed By: #### G LULS #### Point of Care testing , Glucose [Mass/Vol] 149 mg/dL Normal [facility] Comment on above: Result Comment: [place] om Glucose Reference Range is dependent on time and content of last meal. Glucose of more than 200 mg/dL in a nonstressed, ambulatory subject supports the diagnosis of Diabetes Mellitus. Performed By: #### G LULS #### Point of Care testing , Automated basophil %Ordered By: Tee Graham on 12-06-2023 Basophils/100 WBC (Bld) 0.7 % Normal . [facility] Comment on above: Performed By: #### B MP, CBC #### [address] Automated basophil countOrde red By: Tee Graham on 12-06-2023 Basophils (Bld) [#/Vol] 0.1 10*3/uL Normal 0.0-0.2 [facility] Comment on above: Result Comment: PERF ORMED BY: [place] [address] PATHOLOGIST POWDERED SUGAR SUPERVISOR JESSIE DELGADO M.D. Performed By: #### B MP, CBC #### [address] Automated blood monocyte cou ntOrdered By: Tee Graham on 12-06-2023 Monocytes (Bld) [#/Vol] 0.5 10*3/uL Normal 0.0-0.8 [facility] Comment on above: Performed By: #### B MP, CBC #### [address] Automated eosinophil %Ordere d By: Tee Graham on 12-06-2023 Eosinophils/100 WBC (Bld) 2.9 % Normal . [facility] Comment on above: Performed By: #### B MP, CBC #### [address] Automated eosinophil countOr dered By: Tee Graham on 12-06-2023 Eosinophils (Bld) [#/Vol] 0.2 10*3/uL Normal 0.0-0.45 [facility] Comment on above: Performed By: #### B MP, CBC #### [address] Automated monocyte %Ordered By: Tee Graham on 12-06-2023 Monocytes/100 WBC (Bld) 5.9 % Normal . [facility] Comment on above: Performed By: #### B MP, CBC #### [place] [address] [place] Automated neutrophil %Ordere d By: Tee Graham on 12-06-2023 Neutrophils/100 WBC (Bld) 53.1 % Normal . [facility] Comment on above: Performed By: #### B MP, CBC #### [address] Basic Metabolic Panelon 11-16 GFR/1.73 sq M.predicted MDRD (S/P/Bld) [Vol rate/Area] mL/min/{1.73_m2} Normal [facility] Comment on above: Performed By: #### B MP, CBC #### [address] Calcium [Mass/volume] in Ser um or PlasmaOrdered By: Tee Graham on 12-06-2023 Calcium [Mass/Vol] 9.5 mg/dL Normal 8.6-10.3 [facility] Comment on above: Result Comment: PERF ORMED BY: [place] [address] PATHOLOGIST POWDERED SUGAR SUPERVISOR JESSIE DELGADO M.D. Performed By: #### B MP, CBC #### [address] Carbon dioxide, total [Moles /volume] in Serum or PlasmaOrdered By: Tee Graham on 12-06-2023 CO2 [Moles/Vol] 27.7 mmol/L Normal 21.0-31.0 [facility] Comment on above: Performed By: #### B MP, CBC #### [facility] [address] [place] [address] [place] Chloride [Moles/volume] in S mike or PlasmaOrdered By: Tee Graham on 12-06-2023 Chloride [Moles/Vol] 107 mmol/L Normal 98-107 [facility] Comment on above: Performed By: #### B MP, CBC #### [address] Complete Blood Count Auto Di ffon 12-06-2023 Mean Corpuscular HGB Conc 33.4 g/dL Normal 32.0-35.0 [facility] Comment on above: Performed By: #### B MP, CBC #### [facility] [address] NRBC% 0.1 /100{WBC} Normal 0-0.5 [facility] Comment on above: Performed By: #### B MP, CBC #### [facility] [address] Creatinine [Mass/volume] in Serum or PlasmaOrdered By: Tee Graham on 12-06-2023 Creatinine [Mass/Vol] 0.72 mg/dL Normal 0.60-1.20 [facility] Comment on above: Performed By: #### B MP, CBC #### [facility] [address] ECG 12 lead ECGon 12-06-2023 ECG 12 lead ECG [facility] [place] [address] [place] [address] Electrocardiograph Report Signed Patient: Kayleigh Hansen MR#: [id number] 73 : 1965 Acct:[id number] Age/Sex: 57 / F ADM Date: 12/06/23 Loc: Room: Type: [facility] Attending Dr: Tee Graham MD Ordering Provider: Tee Graham MD Date of Service: 12/06/23 ECG/ECG 12 lead ECG: pre-op Copies to: Test Reason : Blood Pressure : */* mmHG Vent. Rate : 84 BPM Atrial Rate : 84 BPM P-R Int : 136 ms QRS Dur : 72 ms QT Int : 368 ms P-R-T Axes : 65 65 74 degrees QTcB Int : 434 ms Normal sinus rhythm Normal ECG No previous ECGs available Confirmed by OMER SARMIENTO MD ([id number]) on 12/06/2023 4:17:10 PM Referred By: Electronically Signed By: OMER SARMIENTO MD Transcribed By: MUS Signed By Omer Sarmiento MD 0 12/06/23 1617 Normal [facility] Erythrocyte distribution wid th [Ratio] by Automated countOrdered By: Tee Graham on 12-06-2023 Erythrocyte distribution width (RBC) [Ratio] 14.6 % Normal 11.9-15.3 [facility] Comment on above: Performed By: #### B MP, CBC #### [facility] [address] Erythrocytes [#/volume] in B lood by Automated countOrdered By: Tee Graham on 12-06-2023 RBC (Bld) [#/Vol] 4.70 10*6/uL Normal 3.60-5.00 [facility] Comment on above: Performed By: #### B MP, CBC #### [facility] [address] [place] [address] [place] Glucose [Mass/volume] in Ser um or PlasmaOrdered By: Tee Graham on 12-06-2023 Glucose [Mass/Vol] 104 mg/dL High 70-100 [facility] Comment on above: ADA recommended refe rence rangeRandom Glucose Reference Range is dependent on time and content of last meal. Glucose of more than 200 mg/dL in a nonstressed, ambulatory subject supports the diagnosis of Diabetes Mellitus. Result Comment: [place] om Glucose Reference Range is dependent on time and content of last meal. Glucose of more than 200 mg/dL in a nonstressed, ambulatory subject supports the diagnosis of Diabetes Mellitus. ADA recommended reference range Performed By: #### B MP, CBC #### [facility] [address] Hematocrit [Volume Fraction] of Blood by Automated countOrdered By: Tee Graham on 12-06-2023 Hematocrit (Bld) [Volume fraction] 43.2 % Normal 34.0-46.4 [facility] Comment on above: Performed By: #### B MP, CBC #### [facility] [address] [place] [address] [place] Hemoglobin [Mass/volume] in BloodOrdered By: Tee Graham on 12-06-2023 Hemoglobin (Bld) [Mass/Vol] 14.4 g/dL Normal 11.8-15.4 [facility] Comment on above: Performed By: #### B MP, CBC #### [address] Leukocytes [#/volume] correc velvet for nucleated erythrocytes in Blood by Automated counOrdered By: Tee Graham on 12-06-2023 WBC corrected for nucl RBC Auto (Bld) [#/Vol] 7.8 10*3/uL 3.8-11.6 [facility] Leukocytes [#/volume] in Blo od by Automated countOrdered By: Tee Graham on 12-06-2023 WBC (Bld) [#/Vol] 7.8 10*3/uL Normal 3.8-11.6 [facility] Comment on above: Performed By: #### B MP, CBC #### [place] [address] [place] Lymphocytes [#/volume] in Bl ood by Automated countOrdered By: Tee Graham on 12-06-2023 Lymphocytes (Bld) [#/Vol] 2.9 10*3/uL Normal 1.00-4.8 [facility] Comment on above: Performed By: #### B MP, CBC #### [address] Lymphocytes/100 leukocytes i n Blood by Automated countOrdered By: Tee Graham on 12-06-2023 Lymphocytes/100 WBC (Bld) 37.4 % Normal . [facility] Comment on above: Performed By: #### B MP, CBC #### [address] MCH [Entitic mass] by Automa velvet countOrdered By: Tee Graham on 12-06-2023 MCH (RBC) [Entitic mass] 30.7 pg Normal 24.7-34.3 [facility] Comment on above: Performed By: #### B MP, CBC #### [address] MCHC Auto (RBC) [Mass/Vol]Or dered By: Tee Graham on 12-06-2023 MCHC (RBC) [Mass/Vol] 33.4 g/dL 32.0-35.0 [facility] MCV [Entitic volume] by Auto mated countOrdered By: Tee Graham on 12-06-2023 MCV (RBC) [Entitic vol] 91.9 fL Normal 80-100 [facility] Comment on above: Performed By: #### B MP, CBC #### [address] Neutrophils [#/volume] in Bl ood by Automated countOrdered By: Tee Graham on 12-06-2023 Neutrophils (Bld) [#/Vol] 4.2 10*3/uL Normal 1.8-7.7 [facility] Comment on above: Performed By: #### B MP, CBC #### [address] No Panel InformationOrdered By: Tee Graham on 12-06-2023 Estimated GFR (CKD-EPI) > 60.0 mL/Min [facility] Creatinine Clearance (Chem N/A [facility] Nucleated erythrocytes [Pres ence] in Blood by Automated countOrdered By: Tee Graham on 12-06-2023 Nucleated RBC Auto Ql (Bld) 0.1 /100{WBC} 0-0.5 [facility] Platelet mean volume [Entiti c volume] in Blood by Automated countOrdered By: Tee Graham on 12-06-2023 Platelet mean volume (Bld) [Entitic vol] 8.6 fL Normal 6.3-10.7 [facility] Comment on above: Performed By: #### B MP, CBC #### [facility] [address] [place] [address] [place] Platelets [#/volume] in Bloo d by Automated countOrdered By: Tee Graham on 12-06-2023 Platelets (Bld) [#/Vol] 294 10*3/uL Normal 150-450 [facility] Comment on above: Performed By: #### B MP, CBC #### [address] Potassium [Moles/volume] in Serum or PlasmaOrdered By: Tee Graham on 12-06-2023 Potassium [Moles/Vol] 4.3 mmol/L Normal 3.5-5.1 [facility] Comment on above: Performed By: #### B MP, CBC #### [facility] [address] Serum or plasma anion gap de terminationOrdered By: Tee Graham on 12-06-2023 Anion gap [Moles/Vol] 10.6 mmol/L Normal 6.0-15.0 [facility] Comment on above: Performed By: #### B MP, CBC #### [facility] [address] [place] [address] Sodium [Moles/volume] in Ser um or PlasmaOrdered By: Tee Graham on 12-06-2023 Sodium [Moles/Vol] 141 mmol/L Normal 136-145 [facility] Comment on above: Performed By: #### B MP, CBC #### [address] Urea nitrogen [Mass/volume] in Serum or PlasmaOrdered By: Tee Graham on 12-06-2023 Urea nitrogen [Mass/Vol] 12 mg/dL Normal 7-25 [facility] Comment on above: Performed By: #### B MP, CBC #### [address] MR CERVICAL SPINE WO CONTRAS Ton 07-28-2023 [...] Time Vital Sign Value Performing Clinician Facility 02-01-2024 09:44-0400 Body height 149.86 cm Roxie Trot Work Phone: [facility] 02-01-2024 09:44-0400 Body mass index (BMI) [Ratio] 21.3 kg/m2 Roxie Trot Work Phone: [facility] 02-01-2024 09:44-0400 Body weight 48 kg Roxie Trot Work Phone: [facility] 01-02-2024 10:46-0400 Body height 149.86 cm Roxie Trot Work Phone: [facility] 01-02-2024 10:46-0400 Body mass index (BMI) [Ratio] 21.6 kg/m2 Roxie Trot Work Phone: [facility] 01-02-2024 10:46-0400 Body weight 48.53 kg Roxie Trot Work Phone: [facility] 12-22-2023 12:00-0400 Respiratory rate 16 /min Roxie Trot Work Phone: [facility] 12-22-2023 08:43-0400 Body temperature 97.8 [degF] Roxie Trot Work Phone: [facility] 12-22-2023 08:43-0400 Diastolic blood pressure 86 mm[Hg] Roxie Aichholz Work Phone: [facility] 12-22-2023 08:43-0400 Heart rate 104 /min Roxie Aichholz Work Phone: [facility] 12-22-2023 08:43-0400 SaO2% (BldA) [Mass fraction] 93 % Roxie Aichholz Work Phone: [facility] 12-22-2023 08:43-0400 Systolic blood pressure 144 mm[Hg] Roxie Aichholz Work Phone: [facility] 12-22-2023 05:58-0400 Body weight 55.2 kg Roxie Constanzahholz Work Phone: [facility] 12-20-2023 13:26-0400 Inhaled oxygen flow rate 1.5 L/min Roxie Constanzahholz Work Phone: [facility] 12-20-2023 05:55-0400 Body height 149.86 cm Roxie Blancaholz Work Phone: [facility] 11-23-2023 08:39-0400 Body weight 51.25 kg [facility] 09-15-2021 17:55-0400 Body height 152.4 cm Akosua Arroyo Other [employer] [facility] [employer] Other 09-15-2021 17:55-0400 Body mass index (BMI) [Ratio] 23.24 kg/m2 Akosua Arroyo Other [employer] Other 09-15-2021 17:55-0400 Body temperature 98 [degF] Akosua Arroyo Other [employer] Other 09-15-2021 17:55-0400 Body weight 53.98 kg Akosua Arroyo Other [employer] Other 09-15-2021 17:55-0400 Diastolic blood pressure 78 mm[Hg] Akosua Arroyo Other [employer] Other 09-15-2021 17:55-0400 Respiratory rate 18 /min Akosua Arroyo Other [employer] Other 09-15-2021 17:55-0400 SaO2% (BldA) [Mass fraction] 97 % Akosua Arroyo Other [employer] Other 09-15-2021 17:55-0400 Systolic blood pressure 114 mm[Hg] Akosua Arroyo Other [employer] Other 09-13-2021 10:35-0400 Body height 152.4 cm Steffi Ayala Other [employer] Other 09-13-2021 10:35-0400 Body mass index (BMI) [Ratio] 24.8 kg/m2 Steffi Valdiviaault Other [employer] Other 09-13-2021 10:35-0400 Body temperature 97 [degF] Steffi Lucy Other [employer] Other 09-13-2021 10:35-0400 Body weight 57.61 kg Steffi Valdiviaault Other [employer] Other 09-13-2021 10:35-0400 Respiratory rate 18 /min Steffi Lucy Other [employer] Other 09-13-2021 10:35-0400 SaO2% (BldA) [Mass fraction] 97 % Steffi Ayala Other [employer] Other 09-11-2021 10:30-0400 Body height 152.4 cm Adan Sol Other [employer] Other 09-11-2021 10:30-0400 Body mass index (BMI) [Ratio] 24.8 kg/m2 Adan Sol Other [employer] Other 09-11-2021 10:30-0400 Body temperature 96.9 [degF] Adan Sol Other [employer] Other 09-11-2021 10:30-0400 Body weight 57.61 kg Adan Sol Other [employer] Other 09-11-2021 10:30-0400 Respiratory rate 20 /min Adan Sol Other [employer] Other 09-11-2021 10:30-0400 SaO2% (BldA) [Mass fraction] 99 % Adan Sol Other [employer] Other Encounters Encounter Date Encounter Type Care Provider Facility Start: 02-01-2024 End: 02-01-2024 ambulatory Roxie Marte Work Phone: [facility] Work Phone: Start: 02-01-2024 End: 02-01-2024 Patient encounter procedure Roxie Marte Work Phone: [facility] Work Phone: Start: 01-31-2024 End: 01-31-2024 Patient encounter procedure Roxie Marte Work Phone: [facility] Work Phone: Start: 01-31-2024 End: 01-31-2024 ambulatory Roxie Dutch Riosholz Work Phone: [facility] Work Phone: Start: 01-03-2024 End: 01-03-2024 ambulatory ROXIE CONSTANZAHHOLZ Not Available Start: 01-02-2024 End: 01-02-2024 ambulatory Roxie J Aichholz Work Phone: [facility] Work Phone: Start: 01-02-2024 End: 01-02-2024 Patient encounter procedure Roxie Aichholz Work Phone: [facility] Work Phone: Start: 01-01-2024 Non-patient / Non-visit Roxie A ichholz Work Phone: [facility] Work Phone: Start: 12-20-2023 Non-patient / Non-visit Roxie A ichholz Work Phone: [facility] Work Phone: Start: 12-20-2023 End: 12-22-2023 Evaluation and management of inpatient Roxie Aichholz Work Phone: [facility] Work Phone: Start: 12-06-2023 End: 12-06-2023 Patient encounter procedure Roxie Blancaholz Work Phone: [facility] Work Phone: Start: 12-06-2023 End: 12-06-2023 ambulatory Roxie J Aichholz Work Phone: [facility] Work Phone: Start: 12-06-2023 Encounter for preprocedural laboratory examination Tee Graham [facility] Start: 11-23-2023 End: 11-23-2023 ambulatory [facility] Work Phone: Start: 11-23-2023 End: 11-23-2023 Patient encounter procedure [facility] Work Phone: Start: 10-03-2023 End: 10-03-2023 ambulatory ROXIE AICHHOLZ Not Available Start: 08-07-2023 End: 08-07-2023 ambulatory ROXIE AICHHOLZ Not Available Start: 07-28-2023 End: 07-28-2023 ambulatory ROXIE AICHHOLZ Not Available Start: 06-26-2023 End: 06-26-2023 ambulatory ROXIE AICHHOLZ Not Available Start: 05-29-2023 Refill Roxie Aichholz PC TECHNICIAN Work Phone: [facility] Comment on above: Type 2 diabetes felicia itus without complications ([facility]) Start: 05-24-2023 Refill Roxie Aichholz PC TECHNICIAN Work Phone: [facility] Comment on above: Hyperlipidemia, unsp ecified ([facility]) Start: 05-15-2023 End: 05-15-2023 ambulatory ROXIE AICHHOLZ Not Available Start: 04-07-2023 End: 04-07-2023 ambulatory AKOSUA SKINNER Not Available Start: 04-03-2023 End: 04-04-2023 ambulatory ROCÍO MAYEN Not Available Start: 03-30-2023 End: 03-30-2023 ambulatory MONICA BOUDREAUX Not Available Start: 03-29-2023 End: 03-29-2023 ambulatory AVEL CEJA Not Available Start: 03-24-2023 ambulatory AKOSUA SKINNER Not Avai lable Start: 03-21-2023 End: 03-21-2023 ambulatory ROCÍO MAYEN Not Available Start: 03-13-2023 End: 03-13-2023 ambulatory ROXIE AICHHOLZ Not Available Start: 09-15-2021 End: 09-15-2021 ambulatory Akosua Arroyo Other [employer] Other Start: 09-15-2021 Office outpatient vi sit 15 minutes Akosua Arroyo [facility] Start: 09-13-2021 End: 09-13-2021 ambulatory Steffi Ayala Other [employer] Other Start: 09-13-2021 Nursing evaluation o f patient and report Steffi Ayala [facility] Start: 09-11-2021 End: 09-11-2021 ambulatory Adan Sol Other [employer] Other Start: 09-11-2021 Office outpatient vi sit 15 minutes Adan Sol [facility] Start: 09-12-2018 End: 09-12-2018 Patient encounter procedure MEIR COCHRAN Facility: Procedures Date Procedure Procedure Detail Performing Clinician Start: 01-31-2024 X-ray of cervical spine Roxie Marte Work Phone: Start: 12-20-2023 Decompression of cer vical spine Roxie Marte Work Phone: Plan of Treatment Date Care Activity Detail Author Start: 12-22-2023 [facility] Start: 12-20-2023 Insertion of Interna l Fixation Device into Cervical Vertebral Joint, Open Approach Insertion of Internal Fixation Device into Cervical Vertebral Joint, Open Approach [facility] Start: 12-20-2023 Release Cervical Spi nal Cord, Open Approach Release Cervical Spinal Cord, Open Approach [facility] Start: 12-20-2023 Hospital admission [facility] Start: 10-15-2023 Influenza vaccination Influenza Vacc ine (#1) [facility] Comment on above: Postponed from 12/16 (Patient Refused) Start: 06-26-2023 End: 06-26-2023 Patient encounter procedure 06/26/2023 5:00 PM EDT Office Visit [facility] [address] [place] [address] Roxie Marte, BARRY [address] [place] [phone] [facility] Start: 2006 Screening for malign ant neoplasm of breast Mammogram [facility] Start: 1996 Screening for malign ant neoplasm of cervix [facility] Start: 12-17-1987 Screening for malign ant neoplasm of cervix Pap Smear [facility] Start: 1985 Urine screening for protein Diabetes: Urine Protein Screening [facility] Start: 1976 Glaucoma screening Diabetes: R etinopathy Screening [facility] Start: 1966 Hemoglobin A1c measurement Diabetes: Hemoglobin A1C [facility] Start: 1966 Screening for malign ant neoplasm of colon [facility] Patient Education Know your Meds [facility] Work Phone: Patient referral [facility] Work Phone: Payers Date Payer Category Payer Self-pay 2019 Unknown BCBS BCBS xxxxxx [id number] 2019-Present [phone] [address] [place] [address] [id number] 2019 Unknown [id number] 1966 Unknown [id number] [id number] 1966 Unknown [id number] 2.16.840.1.942239.3.579.2.1258 1966 Unknown [id number] 2.16.840.1.901972.3.579.2.1258 1966 Unknown [id number] 2.16.840.1.150021.3.579.2.9 1966 Unknown [id number] 2.16.840.1.318852.3.579.2.1258 1966 Unknown [id number] 2.16.840.1.089692.3.579.2.9 1966 Unknown [id number] 2.16.840.1.089586.3.579.2.1258 1966 Unknown [id number] 2.16.840.1.634433.3.579.2.1258 1966 Unknown [id number] 2.16.840.1.273105.3.579.2.1258 1966 Unknown [id number] 2.16.840.1.454161.3.579.2.1258 1966 Unknown [id number] 2.16.840.1.362860.3.579.2.1258 1966 Unknown [id number] 2.16.840.1.764059.3.579.2.1258 1966 Unknown [id number] 2.16.840.1.122278.3.579.2.1258 1966 Unknown [id number] 2.16.840.1.909566.3.579.2.1258 1959 Unknown [id number] Unknown [id number] 2.16.840.1.197754.3.579.2.531 Unknown [id number] 2.16.840.1.727504.3.579.2.531 Unknown [id number] 2.16.840.1.678659.3.579.2.531 Social History Date Type Detail Facility Unknown if ever smoked [facility] [employer] Other Start: 05-15-2023 Sex Assigned At N [facility] [employer] Other Start: 03-13-2023 Tobacco smoking stat [facility] Smokes tobacco daily [facility] History of tobacco use Cigarette Smoker [facility] Start: 03-13-2023 End: 05-15-2023 Cigarettes smoked current (pack per day) - Reported 1 [facility] Start: 03-13-2023 Tobacco use and exposure Smokeless tobacco non-user [facility] Start: 05-15-2023 Alcohol intake Defer [facility] Start: 1965 Sex Assigned At Not on file [facility] Start: 10-17-2023 End: 12-21-2023 Tobacco smoking status NHIS Smoker (finding) [facility] Start: 1965 Sex Assigned At Female F [facility] Medical Equipment Procedure Code Equipment Code Equipment Origin al Text Equipment Identifier Dates Decompression, spine, cervical, posterior approach Spinal fixation plate, non-bioabsorbable [id number] FDA Start: 12-20-2023 Decompression, spine, cervical, posterior approach Spinal fixation plate, non-bioabsorbable ()[id number] FDA Start: 12-20-2023 Decompression, spine, cervical, posterior approach Spinal fixation plate, non-bioabsorbable ()[id number] FDA Start: 12-20-2023 Decompression, spine, cervical, posterior approach Spinal fixation plate, non-bioabsorbable ()[id number] FDA Start: 12-20-2023 Once a day [id number] Start: 05-29-2023 End: 05-28-2024 1 Lancet in the morning. [id number] Start: 05-29-2023 Goals Date Patient Goal Desired Activity /State Functional Status Date Assessment Result Facility 12-22-2023 Functional status Patient at Baseline [facility] Work Phone: Mental Status Date Assessment Result Facility 12-22-2023 Cognitive function Cognitive Sta tus Patient at Baseline [facility] Work Phone: Clinical Notes 09-11-2021 to 12-22-2023 Note Date & Type Note Facility 12-22-2023 Progress note Note Date/Time December 22, 2023 8:44am [facility] [address] [place] [address] Neurosurgery Progress Note Signed Patient: Kayleigh Hansen MR#: [id number] : 1965 Acct:[id number] Age/Sex: 58 / F Adm Date: 4 Loc: 4N Room: [address] [place] [address] Type: ADM IN Attending Dr: Tee Graham MD Copies to: ~ Date of Service: 12/22/2023 Subjective Subjective HPI: Patient still has back pain but is better than yesterday. No extremity complaints Exam Physical Exam Vital Signs: Temp Pulse Resp BP Pulse Ox O2 Del Method O2 Flow Rate 98.4 F 109 H 18 139/75 94 L Room Air 1.5 12/22/23 02:46 12/22/23 02:46 12/22/23 02:46 12/22/23 02:46 12/22/23 02:46 12/22/23 02:46 12/20/23 13:26 Narrative: Wound dry Patient alert and oriented Upper extremity lower extremity strength grossly at baseline Objective Lab Results Most Recent Labs: 12/22/23 07:27: POC Glucose 146 12/21/23 20:31: POC Glucose 320 12/21/23 16:51: POC Glucose 210 12/21/23 11:36: POC Glucose 193 Assessment/Plan Assessment/Plan (1) Stenosis of cervical spine with myelopathy: Plan Patient appears much more comfortable today tolerating good oral medications. Home-going instructions have been given. We will follow-up with her in 2 weeks in the office. Documented By: Tee Graham MD 12/22/2343 Signed By: <Electronically signed by MD Tee Graham> 12/22/2344 [facility] Work Phone: 1(993) 170-163709-05-2024 Progress note Author Tee Graham [facility] December 21, 2023 7:57am Note Date/Time December 21, 2023 7:57am [facility] [address] [place] [address] Neurosurgery Progress Note Signed Patient: Kayleigh Hansen MR#: [id number] : 1965 Acct:[id number] Age/Sex: 58 / F Adm Date: 4 Loc: Room: 1N3822-5 Type: ADM IN Attending Dr: Tee Graham MD Copies to: ~ Date of Service: 12/21/2023 Subjective Subjective HPI: Patient in bed awake and alert. Says she did well overnight, but is having painthis morning. Exam Physical Exam Vital Signs: Temp Pulse Resp BP Pulse Ox O2 Del Method O2 Flow Rate 98.1 F 90 12 129/75 95 Room Air 1.5 12/21/23 03:48 12/21/23 03:48 12/21/23 03:48 12/21/23 03:48 12/21/23 03:48 12/21/23 04:00 12/20/23 13:26 Narrative: Incision clean dry Upper and lower extremity strength and motion baseline Gait grossly normal Objective Lab Results Most Recent Labs: 12/20/23 20:08: POC Glucose 283 12/20/23 17:24: POC Glucose 298 Assessment/Plan Assessment/Plan (1) Stenosis of cervical spine with myelopathy: Plan Increase activity as tolerated physical therapy. Evaluate for discharge to home, probably in a.m. Documented By: Tee Graham MD 12/21/23 0748 Signed By: <Electronically signed by MD Tee Graham> 12/21/23 0757 [facility] Work Phone: 1(224) 203-127606-01-2022 Evaluation note* Encounter Date Diagnosis Assessment Notes Treatment Notes Treatment Clinical Notes Sep, Visit for wound check (ICD-10 - Z51.89) Keep the area clean and dry. Keep the area covered with a Band-Aid. No swimming until the area is completely healed. Follow-up with the family physician next week for recheck. Go to the ER for worsening symptoms or concerns. Sep, Other Incision and drainage of a skin abscess material was printed [employer] Other 05-30-2022 Evaluation note* Encounter Date Diagnosis Assessment Notes Treatment Notes Treatment Clinical Notes August, Encounter for wound re-check (ICD-10 - Z51.89) RTO on Monday and dressing changed today in office. [facility] Other 05-28-2022 Evaluation note* Encounter Date Diagnosis Assessment Notes Treatment Notes Treatment Clinical Notes August, Cutaneous abscess of left axilla [...] She understands and agrees with the plan. [employer] Other Evaluation note* Diagnosis Hyperlipidemia, unspecified (CMS/HCC) documented in this encounter [facility] Diagnosis Type 2 diabetes mellitus without complications (CMS/HCC) documented in this encounter [facility]* Diagnosis Onset Date Resolution Status Neck pain acute Stenosis of cervical spine with myelopathy acute [facility] Work Phone: Evaluation note* Diagnosis Onset Date Resolution Status Neck pain acute Stenosis of cervical spine with myelopathy acute Stenosis of cervical spine with myelopathy acute [facility] Work Phone: Evaluation note* Diagnosis Onset Date Resolution Status Neck pain acute Stenosis of cervical spine with myelopathy acute Stenosis of cervical spine with myelopathy acute Stenosis of cervical spine with myelopathy acute [facility] Work Phone: History general Narrative - Reported* Type Description Date Medical History diabetic Medical History hypercholesterolemia Surgical History right leg surgery Surgical History gallblatter Surgical History c section Surgical History tonsils Hospitalization History see above [facility] [facility] Other Hospital Discharge instructions Additional Instructions DISCHARGE INSTRUCTIONS FOR POSTERIOR CERVICAL LAMINOPLASTY DIET RESTRICTIONS -None unless diabetic or cardiac ACTIVITY -Up in house- activity as tolerated -No lifting over 15 pounds -No driving until seen my physician; may ride in car -May shower in a.m. OTHER -Call your physician's office for any fever, drainage, or chills -Please call your physician's office and make an appointment to see your physician in two weeks. Collar is optional at this time please wear for comfort Use ice for muscle spasm in the back of the neck 20 minutes every 1-2 hours If no wound drainage is present [facility] Summary Purpose Family History No Family History Records Found Relationship Condition Age at Onset Recorded Date/T manuel father Malignant neoplasm of lung Unknown Unknown Abdominal aortic aneurysm (AAA) Unknown Myocardial infarction Unknown mother Chronic obstructive pulmonary disease Unk nown sister Diabetes mellitus Unknown Advance Directives No Advanced Directives Records Found Advance Directive Response Recorded Date/ Time Advance Directives No October 16 4 3:02pm Advance Directive Response Recorded Date/ Time Advance Directives No December 7:44am Chief Complaint and Reason for Visit Reason for Visit Neck pain Stenosis of cervical spine with myelopathy Chief Complaint Cervical Stenosis w/ Myelopathy Reason for Visit Neck pain Stenosis of cervical spine with myelopathy Chief Complaint Cervical Stenosis w/ Myelopathy Cervical Stenosis w/Myelopathy Cervical Stenosis w/Myelopathy Reason for Visit Neck pain 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 Chief Complaint Cervical Stenosis w/ Myelopathy Cervical Stenosis w/Myelopathy Cervical Stenosis w/Myelopathy Cervical Stenosis w/Myelopathy 4 week PO cervical laminoplasty Reason for Visit Neck pain 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 Chief Complaint Cervical Stenosis w/ Myelopathy Cervical Stenosis w/Myelopathy Cervical Stenosis w/Myelopathy Cervical Stenosis w/Myelopathy 4 week PO cervical laminoplasty M48.02 Reason for Visit Neck pain 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 Chief Complaint Cervical Stenosis w/ Myelopathy Cervical Stenosis w/Myelopathy Cervical Stenosis w/Myelopathy Cervical Stenosis w/Myelopathy 4 week PO cervical laminoplasty M48.02 6 `week po PCD w/xray Reason for Visit Neck pain 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 Additional Source Comments INFORMATION SOURCE (unrecogn ized section and content) DATE CREATED AUTHOR 11/26/2018 [facility] pital DATE CREATED AUTHOR AUTHOR'S ORGANIZ ATION 01/06/2024 [facility] EPIC DATE CREATED AUTHOR AUTHOR'S ORGANIZ ATION 02/24/2024 [facility] REASON FOR VISIT (unrecogniz ed section and content) Reason Comments Med Refill Care Teams (unrecognized sec tion and content) Fire Code Inspector Relationship Specialty Start Date End Date Nikunj Camejo MD PCP - General Family Medicine 02/17/23 Nikunj Camejo MD [address] [place] [address] PCP - [place] [employer] 04/17/23 Roxie Marte NP [address] [place] [phone] Nurse Practitioner [facility] 02/17/23 Fire Code Inspector Relationship Specialty Start Date End Date Nikunj Camejo MD PCP - General Family Medicine 02/17/23 Nikunj Camejo MD [address] [place] [phone] PCP - [facility] 04/17/23 Roxie Marte NP [address] [place] [phone] Nurse Practitioner [facility] 02/17/23 Team Status: Active Member Role Status Dates Roxie Marte Primary Care Provider Active Team Status: Inactive Member Role Status Dates Tee Graham MD Attending Provider Active Star t: November 23, 2023 End: November 23, 2023 Roxie Marte Primary Care Provider Active Sta rt: November 23, 2023 End: November 23, 2023 Team Status: Inactive Member Role Status Dates Roxie Marte Primary Care Provider Active Sta rt: December 06, 2023 End: December 06, 2023 Tee Graham MD Attending Provider Active Star t: December 06, 2023 End: December 06, 2023 Team Status: Inactive Member Role Status Dates Roxie Marte Primary Care Provider Active Sta rt: December 20, 2023 End: December 22, 2023 Tee Graham MD Admit Provider, Atte nding Provider Active Start: December 20, 2023 End: December 22, 2023 Team Status: Active Member Role Status Dates Roxie Marte Primary Care Provider Active Sta rt: December 20, 2023 Tee Graham MD Admit Provider, Atte nding Provider, Other Provider Active Start: December 20, 2023 Team Status: Active Member Role Status Dates Roxie Marte Primary Care Provider Active Sta rt: January 01, 2024 Tee Graham MD Admit Provider, Atte nding Provider, Other Provider Active Start: January 01, 2024 Team Status: Inactive Member Role Status Dates Roxie Marte Primary Care Provider Active Sta rt: January 02, 2024 End: January 02, 2024 Tee Graham MD Attending Provider Active Star t: January 02, 2024 End: January 02, 2024 Team Status: Inactive Member Role Status Dates Roxie Marte Primary Care Provider Active Sta rt: January 31, 2024 End: January 31, 2024 Tee Graham MD Attending Provider Active Star t: January 31, 2024 End: January 31, 2024 Team Status: Inactive Member Role Status Dates Roxie Marte Primary Care Provider Active Sta rt: February 01, 2024 End: February 01, 2024 Tee Graham MD Attending Provider Active Star t: February 01, 2024 End: February 01, 2024 Goals (unrecognized section and content) Goals may be documented in a n alternate section FOR RECORDS PERTAINING TO PATIENTS WHO ARE [...] BE BASED ON THE PRIMARY CLINICAL RECORDS. [employer] provides no warranty or guarantee of the accuracy or completeness of information in this document.
[2024-03-01 11:58] LABS: Creatinine Urine Random 69.89 mg/dL (20.00-300.00); Microalbumin Urine Random 15.1 mg/dL (<=30.0)
[2024-03-01 12:01] LABS: Alanine Aminotransferase 13 U/L (14-59); Albumin Globulin Ratio 1.1; Albumin Level 3.8 g/dL (3.4-5.0); Alkaline Phosphatase 84 U/L (46-116); Anion Gap 19.6; Aspartate Amino Transferase 12 U/L (15-37); BUN Creatinine Ratio 12.2; Bilirubin Total 0.4 mg/dL (0.2-1.0); Calcium 9.3 mg/dL (8.5-10.1); Carbon Dioxide 21.3 mmol/L (21.0-32.0); Chloride 107 mmol/L (98-107); Chol HDL Ratio 3.2; Cholesterol 182 mg/dL (<=200); Estimated GFR (African America >60 (>=60 mL/min/1.73m^2); Estimated GFR (Non-African Ame >60 (>=60 mL/min/1.73m^2); Globulin 3.4 g/dL; Glucose 169 mg/dL (74-106); HDL Cholesterol 57 mg/dL (40-60); Potassium 3.9 mmol/L (3.5-5.1); Sodium 144 mmol/L (136-145); Total Protein 7.2 g/dL (6.4-8.2); Triglycerides 293 mg/dL (<=150); VLDL CHOLESTEROL 58.6 mg/dL
[2024-03-01 12:02] LABS: Estimated Average Glucose 180 mg/dL; Glycohemoglobin A1C 7.9 % (4.5-6.2)
[2024-03-01 12:53] LABS: Bilirubin Urine NEGATIVE (NEGATIVE); Blood Urine NEGATIVE (NEGATIVE); Clarity Urine CLEAR (CLEAR); Color Urine YELLOW (YELLOW); Glucose Urine UA >=1000 mg/dL (NEGATIVE); Ketones Urine TRACE mg/dL (NEGATIVE); Leukocyte Esterase Urine NEGATIVE (NEGATIVE); Nitrite Urine NEGATIVE (NEGATIVE); Protein Urine TRACE mg/dL (NEG/TRACE); Specific Gravity Urine 1.015 (1.005-1.025); Urobilinogen Urine 0.2 EU/dL (0.2-1.0); pH Urine 5.5 (5.0-9.0)
[2024-03-01 12:58] LABS: Urine Microscopic Indicated NO
== END 2024-03-01 11:00 | disposition home or self-care (01) ==
LOC: LAB 11:02
PROVIDERS: PCP Nurse Practitioner; Visit Provider Nurse Practitioner
DX: E78.2 Mixed hyperlipidemia (principal); E08.65 Diabetes mellitus due to underlying condition with hyperglycemia; Z72.0 Tobacco use
CPT/HCPCS: 36415; 80053; 80061; 81003; 82043; 82570; 83036; 85025